=== PATIENT | male | born 1950 | race Caucasian/White ===

== ENCOUNTER → 2016-09-05 | Outpatient (CLI) | payer OTHER ==
--- NOTE | 2016-09-05 09:48 | KCIC ---
EXAM: Bone densitometry. HISTORY: 65-year-old male presents with decreased height. FINDINGS: BMD: (g/cm2) - AP Spine Total (L1-L4): 1.369 - Total left Hip: 1.150 T-Score: - AP Spine Total (L1-L4): 2.5 - Total left Hip: 0.8 Z-Score: - AP Spine Total (L1-L4): 3.4 - Total left Hip: 1.4 World Health Organization criteria for BMD interpretation classify patients as Normal (T-score at or above -1.0), Osteopenic (T-score between -1.0 and -2.5), or Osteoporotic (T-score at or below -2.5). IMPRESSION: Normal bone mineral density. Electronically signed by: Elvie Arcos (Sep 05, 2016 09:47:02)
--- NOTE | 2016-09-05 11:09 | KCIC ---
PROCEDURE Coronary artery calcium score HISTORY Calcium screening. Right carotid stent. TECHNIQUE High resolution, computed tomography of the heart was performed with ECG gating and suspended respiration using the Siemens HeartView CT. No contrast material was administered. Post processing was performed on the 3-D computer workstation using diastolic phase images to measure the amount of coronary vascular calcium. Scoring was performed utilizing the Agat[place] Method. COMPARISON None. FINDINGS Thorax: No significant abnormality is identified in the lungs or mediastinum. Note that this CT exam is limited to the heart and adjacent structures. Coronary arteries: CALCIUM IS PRESENT TOTAL AGATSTON CALCIUM SCORE =223. Calcium is detected in the coronary circulation and confirms the presence of atherosclerotic plaque. Calcium score in the LAD is 192, circumflex 0, RCA 31. No significant calcium is identified within the left main coronary artery. The presence of coronary calcium confirms the presence of atherosclerotic plaque. The greater the amount of coronary calcium, the greater the likelihood of stenotic or occlusive coronary artery disease. However, there is not a one-to-one relationship, and findings may not be site specific. The total amount of calcium correlates best with the total amount of atherosclerotic plaque, although the true "plaque burden" can be underestimated by calcium score. MODERATE coronary atherosclerosis is present. Individuals in this score range typically have mild to moderate luminal irregularity at coronary angiography. There is an INTERMEDIATE RISK of cardiovascular events based on this test. IMPRESSION 1. Coronary atherosclerosis is present, moderate amount. 2. Intermediate risk of cardiovascular event. RECOMMENDATIONS 1. Further evaluation and prevention strategies should be based on global assessment of cardiovascular risk factors in addition to the results of this test. 2. Aggressive reduction of modifiable cardiovascular risk factors should be considered. Additional supporting information concerning the findings and recommendation contained within this report can be found in the consensus statements on coronary vascular calcium published by the [place] [employer] and [place] [employer] and Prevention 5 Conference (Circulation 1996; 94: 7954-4585; J Am Bruce Cardiol 2000; 36: 326-340 and Circulation 2000; 101: 111-116). Electronically signed by: Lavon Rangel MD (Sep 05, 2016 11:07:58)
== END | disposition home or self-care (01) ==
LOC: KCIC DEXA 08:35
PROVIDERS: ATTEND Family Medicine
DX: Z13.6 Encounter for screening for cardiovascular disorders (principal); M81.8 Other osteoporosis without current pathological fracture; R29.890 Loss of height; I25.10 Atherosclerotic heart disease of native coronary artery without angina pectoris
CPT/HCPCS: 75571; 77080

== ENCOUNTER → 2020-07-20 | Outpatient (CLI) | payer MEDICARE ==
--- NOTE | 2020-07-20 15:44 | EKG ---
[facility] [address] [place] [address] Test Date: 2020-07-20 Test Time: 15:42:12 Pat Name: JIMMY HUFF Department: Room: Gender: [employer] Director: [place] : 1950 Requested By: STAFF NON Order Number: [id number] Reading MD: Ricardo Griffin Measurements Intervals [place] Rate: 57 P: 45 PA: 166 QRS: 12 QRSD: 76 T: 29 QT: 372 QTc: 365 Interpretive Statements SINUS RHYTHM NORMAL ECG Electronically Signed On 07-22-2020 9:22:30 [employer]ICE DISPATCHER by Ricardo Griffin
--- NOTE | 2020-07-20 17:13 | RAD ---
Chest, PA and Lateral: Technique: PA and lateral views of the chest were obtained. History: Preop. Comparison: None. Findings: Low lung volumes accentuate heart size and pulmonary vascularity. Mild bibasilar lung airspace opacit ies. Moderate degenerative changes thoracic spine IMPRESSION: 1. Mild bibasilar lung airspace opacities likely atelectasis or infiltrates. Electronically signed by: Jerson Morillo MD (07/20/2020 5:10 PM) [id number]
== END ==
LOC: EKG 15:02
PROVIDERS: ATTEND Orthopaedic Surgery Sports Medicine
DX: Z01.810 Encounter for preprocedural cardiovascular examination (principal); M25.50 Pain in unspecified joint; R60.9 Edema, unspecified
CPT/HCPCS: 71046; 93005